=== PATIENT | male | born 1990 | race Two or more races ===

== ENCOUNTER 2019-08-29 20:22 | Emergency (ER) | payer SELFPAY ==
[~2019-08-29] VITALS: Ht 172.7 cm; Wt 83.5 kg
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
[2019-08-29] MEDS ORDERED: LIDOCAINE 1%-EPI 1:100,000 20 ML VIAL ONE (20:39)
--- NOTE | 2019-08-29 20:39 | NUR ---
EMT AT BEDSIDE FOR WOUND CLEANING.
[2019-08-29] MEDS: LIDOCAINE 1%-EPI 1:100,000 20 ML VIAL TP ONE (20:43)
--- NOTE | 2019-08-29 21:00 | NUR ---
IVAN CHAPA TA BEDSIDE FOR SUTURE
--- NOTE | 2019-08-29 21:04 | NUR ---
[facility] CALLED [employer] [id number] #[id number]
[2019-08-29] MEDS ORDERED: TDAP [DIPH/PERTUSSIS/TET] 0.5 ML VIAL IM ONE (21:07)
[2019-08-29] MEDS: TDAP [DIPH/PERTUSSIS/TET] 0.5 ML VIAL IM ONE (21:13)
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
[2019-08-29 21:26] VITALS: BP 148/79
== END 2019-08-29 21:26 | disposition home or self-care (01) ==
LOC: ER 20:22
DX: S01.112A Laceration without foreign body of left eyelid and periocular area, initial encounter (principal); S05.12XA Contusion of eyeball and orbital tissues, left eye, initial encounter; S60.511A Abrasion of right hand, initial encounter; S09.8XXA Other specified injuries of head, initial encounter; Y04.8XXA Assault by other bodily force, initial encounter; Y93.89 Activity, other specified; Y92.89 Other specified places as the place of occurrence of the external cause; Y99.8 Other external cause status
CPT/HCPCS: 12013; 90471; 90715; 99283; A6403; J3490